=== PATIENT | male | born 1995 | race Caucasian/White ===

== ENCOUNTER 2020-06-07 15:38 | Emergency (ER) | payer OTHER ==
--- OUTSIDE RECORDS SUMMARY | 2020-06-07 16:05 | XMS REPORT | Continuity of Care Document ---
:1995 Author Organization [facility] t Address [address] [place] [address] Care Team Providers Name Role Phone Unavailable Unavailable Unavailable Payers Payer Name Policy Type Policy Number Effective Date Expiration Date S ource Problems This patient has no known problems. Allergies, Adverse Reactions, Alerts Allergy Allergy Status Severity Reaction(s) Onset Inactive Treating Comm ents Source Name Type Date Date Clinician UNKNOWN DA Active U [facility] 01-[address] [facility] 00:00: d 00 [facility] Medications This patient has no known medications. Procedures This patient has no known procedures. Results Test Description Test Time Test Comments Results Result [facility] e Comments - XR CHEST 1 V 2020-01-21 Name: ARIA ONEAL 13:14:00 [facility] : 1995 Age/S: 24 / M [address] [place] Unit #: [id number] Loc: [place] [address] Phys: Kmii Flores B DO Acct: [id number] Dis Date: Status: REG ER PHONE #: [phone] Exam Date: 01/21/2020 1312 FAX #: Reason: chest pain EXAMS: CPT: [id number] XR CHEST 1 V 66883 Fluoro Time: DAP (Gy m2): Air Kerma (mGy): INDICATION: chest pain LOCATION: T18 COMPARISON STUDY: None available FINDINGS: Single view of the chest. The lungs are clear. There is no pneumothorax or pleural fluid. The heart size and pulmonary vasculature are within normal limits. No acute osseous findings. IMPRESSION: No evidence of acute cardiopulmonary process. at 1314 Reported and signed by: Murali Azar M.D. CC: Kimi Flores DO PAGE 1 Signed Report Name: ARIA ONEAL : 1995 Age/S: 24 / M [address] [place] Unit #: [id number] Loc: [place] [address] Phys: Kimi Flores DO Acct: [id number] Dis Date: Status: REG ER PHONE #: [phone] Exam Date: 01/21/2020 1312 FAX #: Reason: chest pain EXAMS: CPT: [id number] XR CHEST 1 V 94928 Fluoro Time: DAP (Gy m2): Air Kerma (mGy): <Continued> Technologist: Isma Jorge RT(R)(CT) Trnscb Date/Time: 01/21/2020 (1314) [email or web address] Orig Print D/T: S: 01/21/2020 (9487) PAGE 2 Signed Report BASIC METABOLIC PANEL 2020-01-21 13:04:00 Test Item Value Reference Range Interpretation Comme nts SODIUM (test code = NA) 141 mmol/L 134-147 N POTASSIUM (test code = K) 3.5 mmol/L 3.4-5.0 N CHLORIDE (test code = CL) 106 mmol/L 100-108 N CARBON DIOXIDE (test code = CO2) 25 mmol/L 21-32 N ANION GAP (test code = GAP) 10.0 GAP calc 4.0-15.0 N GLUCOSE (test code = GLU) 90 MG/DL 70-110 N BLOOD UREA NITROGEN (test code = BUN) 24 MG/DL 7-18 H GLOMERULAR FILTRATION RATE (test code = GFR) >=60 max estimate estG FR >60 CREATININE (test code = CREAT) 0.8 MG/DL 0.8-1.3 N CALCIUM (test code = CA) 8.5 MG/DL 8.5-10.1 N CREATINE KINASE (CK)2020-01-21 13:04:00 Test Item Value Reference Range Interpretation Comments CREATINE KINASE (CK) (test code = 580 Unit/L 26-192 H CK) CBC W/O [id number] 12:51:00 Test Item Value Reference Range Interpretation Comments WHITE BLOOD CELL (test code = WBC) 11.6 K/mm3 3.5-11.0 H RED BLOOD CELL (test code = RBC) 4.49 M/mm3 4.70-6.10 L HEMOGLOBIN (test code = HGB) 14.2 G/DL 12.3-15.9 N HEMATOCRIT (test code = HCT) 42.1 % 35.8-46.7 N MEAN CELL VOLUME (test code = MCV) 93.8 Fl 86.3-98.9 N MEAN CELL HGB (test code = MCH) 31.6 pg 28.9-34.4 N MEAN CELL HGB CONCETRATION (test 33.7 G/DL 32.1-34.5 N code = MCHC) RED CELL DISTRIBUTION WIDTH (test 12.8 SD 11.5-14.5 N code = RDW) PLATELET COUNT (test code = PLT) 219 K/mm3 150-450 N MEAN PLATELET VOLUME (test code = 9.30 fL 7.0-9.6 N MPV)
--- NOTE | 2020-06-07 17:25 | ER ---
Nurse's Notes [facility] Name: Lars Cruz III Age: 24 yrs Sex: Male : 1995 Arrival Date: 06/07/2020 Time: 16:06 Bed Waiting Private MD: Diagnosis: Presentation: 06/07 16:06 Chief complaint: Patient states: RUQ abd pain for 1 day. States it feels like his ll1 kidney stones in the past. No N/V/D. No fever. Coronavirus screen: Client denies travel out of the [place] in the last 14 days. At this time, the client does not indicate any symptoms associated with coronavirus-19. Ebola Screen: Patient denies travel to an Ebola-affected area in the 21 days before illness onset. Initial Sepsis Screen: Does the patient meet any 2 criteria? HR > 90 bpm. No. Patient's initial sepsis screen is negative. Does the patient have a suspected source of infection? Yes: Acute abdominal pain. Risk Assessment: Do you want to hurt yourself or someone else? Patient reports no desire to harm self or others. Onset of symptoms was June 07, 2020. 16:06 Method Of Arrival: Ambulatory 1 16:06 Acuity: JONATHAN 3 ll1 Historical: - Allergies: 16:10 "1 pink pill"-cant remember the name; ll1 - PMHx: 16:10 Kidney stones; tachycardia; ll1 - PSHx: 16:10 facial surgery; ll1 - Immunization history:: Flu vaccine is not up to date. - Social history:: Smoking status: Patient reports the use of cigarette tobacco products, denies chronic smoking, but will smoke occasionally. Vital Signs: 16:06 BP 120 / 89; Pulse 107; Resp 16; Temp 97.5; Pulse Ox 99% ; Weight 58.97 kg; Height 5 ll1 ft. 2 in. (157.48 cm); Pain 7/10; 16:06 Body Mass Index 23.78 (58.97 kg, 157.48 cm) 1 ED Course: 16:06 Patient arrived in ED. ll1 16:08 Triage completed. ll1 16:10 Arm band placed on. ll1 Administered Medications: No medications were administered Outcome: 17:25 Patient left the ED. 1 Signatures: Gilbert, Lynsay, RN RN ll1
[2020-06-07 17:37] VITALS: BP 120/89; TEMP 97.5; O2SAT 99
== END 2020-06-07 17:25 | disposition left against medical advice (07) ==
LOC: ER 15:38
DX: R10.9 Unspecified abdominal pain (principal); Z53.21 Procedure and treatment not carried out due to patient leaving prior to being seen by health care provider
CPT/HCPCS: 99281

== ENCOUNTER 2020-06-07 18:13 | Observation (INO) | payer OTHER ==
--- OUTSIDE RECORDS SUMMARY | 2020-06-07 18:16 | XMS REPORT | Continuity of Care Document ---
:1995 Author Organization [facility] t Address [address] [place] [address] Care Team Providers Name Role Phone Unavailable Unavailable Unavailable Payers Payer Name Policy Type Policy Number Effective Date Expiration Date S ource Problems This patient has no known problems. Allergies, Adverse Reactions, Alerts Allergy Allergy Status Severity Reaction(s) Onset Inactive Treating Comm ents Source Name Type Date Date Clinician UNKNOWN DA Active [facility] Medications This patient has no known medications. Procedures This patient has no known procedures. Results Test Description Test Time Test Comments Results Result [facility] e Comments - XR CHEST 1 V 2020-01-21 Name: ARIA ONEAL 13:14:00 [facility] : 1995 Age/S: 24 / M [address] [place] Unit #: [id number] Loc: [place] [address] Phys: Madlilly,Timii B DO Acct: [id number] Dis Date: Status: REG ER PHONE #: [phone] Exam Date: 01/21/2020 1312 FAX #: Reason: chest pain EXAMS: CPT: [id number] XR CHEST 1 V 39227 Fluoro Time: DAP (Gy m2): Air Kerma [...] ONEAL : 1995 Age/S: 24 / M [address] [place] Unit #: [id number] Loc: [place] [address] Phys: Kimi Flores DO Acct: [id number] Dis Date: Status: REG ER PHONE #: [phone] Exam Date: 01/21/2020 1312 FAX #: Reason: chest pain EXAMS: CPT: [id number] XR CHEST 1 V 32036 Fluoro Time: DAP (Gy m2): Air Kerma (mGy): <Continued> Technologist: Isma Jorge RT(R)(CT) Trnscb Date/Time: 01/21/2020 (131) [email or web address] Orig Print D/T: S: 01/21/2020 (7627) PAGE 2 Signed Report BASIC METABOLIC PANEL [...] 580 Unit/L 26-192 H CK) CBC W/O [id number] 12:51:00 Test Item Value Reference Range Interpretation [...]
[2020-06-07] MEDS ORDERED: NA CHLORIDE 0.9% 1,000 ML ONE (21:18)
[2020-06-07] MEDS ORDERED: KETOROLAC 30 MG/ML INJ ONE (21:18)
[2020-06-07] MEDS ORDERED: ONDANSETRON 4 MG/2 ML VIAL ONE (21:18)
[2020-06-07 21:19] LABS: Absolute Lymphocytes (CBC) 3.5 K/uL (0.7-4.9); Basophils % 0.7 % (0-1.3); Hematocrit 43.1 % (39.6-49.0); Lymphocytes % 32.2 % (15.3-44.8); MPV 8.2 fL (7.6-11.3); RBC Red Blood Cell Count 4.78 M/uL (4.33-5.43)
[2020-06-07 21:37] LABS: ALT/SGPT 49 U/L (12-78); AST/SGOT 27 U/L (15-37); Albumin 3.9 g/dL (3.4-5.0); Alkaline Phosphatase 89 U/L (45-117); BUN Blood Urea Nitrogen 18 mg/dL (7-18); Bicarbonate 29 mmol/L (21-32); Bilirubin Direct < 0.1 mg/dL (0-0.2); Bilirubin Total 0.2 mg/dL (0.2-1.0); Glucose Level 90 mg/dL (74-106); Lipase 164 U/L (73-393); Potassium 4.3 mmol/L (3.5-5.1); Protein, Total 7.2 g/dL (6.4-8.2); Sodium Level 142 mmol/L (136-145)
[2020-06-07 22:21] LABS: Urine Blood 1+ (NEG); Urine Glucose TRACE (NEG); Urine Protein NEGATIVE (NEG); Urine Specific Gravity >1.030 (1.005-1.030); Urine pH 5.5 (5.0-7.0)
[2020-06-07 22:27] LABS: Calcium Oxalate Crystals- Ur MODERATE (NONE SEEN); Urine Bacteria <20 /HPF (NONE SEEN); Urine RBC <5 /HPF (NONE SEEN)
[2020-06-07 22:28] LABS: Urine Mucus 1+ /HPF (NONE SEEN)
--- NOTE | 2020-06-07 23:40 | EDPHYS ---
Physician Documentation [facility] Name: Lars Cruz III Age: 24 yrs Sex: Male : 1995 Arrival Date: 06/07/2020 Time: 18:19 Bed 16 Private MD: ED Physician Mehrdad Lambert HPI: 06/07 20:50 This 24 yrs old Male presents to ER via Ambulatory with complaints of cp Abdominal Pain. 20:50 The patient presents with abdominal pain right flank. cp 20:50 Onset: The symptoms/episode began/occurred intermittent for months, pain returned cp yesterday. 20:50 The symptoms do not radiate. Associated signs and symptoms: Pertinent positives: cp nausea, right mid back pain. Historical: - Allergies: 18:32 "1 pink pill"-cant remember the name; ll1 - PMHx: 18:32 Kidney stones; Tachycardia; ll1 - PSHx: 18:32 facial surgery; ll1 - Immunization history:: Flu vaccine is not up to date. - Social history:: Smoking status: Patient reports the use of cigarette tobacco products, denies chronic smoking, but will smoke occasionally, smokes one-half pack cigarettes per day. ROS: 20:55 Constitutional: Negative for body aches, chills, fever, poor PO intake. cp 20:55 Eyes: Negative for injury, pain, redness, and discharge. cp 20:55 ENT: Negative for ear pain, sore throat, difficulty swallowing, difficulty handling secretions. 20:55 Cardiovascular: Negative for chest pain. 20:55 Respiratory: Negative for cough, shortness of breath, wheezing. 20:55 Abdomen/GI: Positive for abdominal pain, of the anterior aspect of right lateral abdomen, Negative for vomiting, diarrhea, constipation, anorexia. 20:55 Back: Positive for flank pain, on the right, Negative for injury or acute deformity, decreased range of motion. 20:55 : Negative for urinary symptoms, difficulty urinating, testicular pain 20:55 Neuro: Negative for weakness. 20:55 All other systems are negative. Exam: 21:00 Constitutional: The patient appears in no acute distress, alert, awake, non-toxic, well cp developed, well nourished. 21:00 Head/Face: Normocephalic, atraumatic. cp 21:00 Eyes: Periorbital structures: appear normal, Conjunctiva: normal, no exudate, no injection, Sclera: no appreciated abnormality, Lids and lashes: appear normal, bilaterally. 21:00 ENT: External ear(s): are unremarkable, Nose: is normal, Posterior pharynx: Airway: no evidence of obstruction, patent. 21:00 Chest/axilla: Inspection: normal, Palpation: is normal, no crepitus, no tenderness. 21:00 Cardiovascular: Rate: tachycardic, Rhythm: regular. 21:00 Respiratory: the patient does not display signs of respiratory distress, Respirations: normal, no use of accessory muscles, no retractions, labored breathing, is not present, Breath sounds: are clear throughout, no decreased breath sounds, no stridor, no wheezing. 21:00 Abdomen/GI: Inspection: abdomen appears normal, Bowel sounds: active, all quadrants, Palpation: soft, in all quadrants, mild abdominal tenderness, in the anterior aspect of right lateral abdomen, rebound tenderness, is not appreciated, voluntary guarding, is not appreciated, involuntary guarding, is not appreciated. 21:00 Back: CVA tenderness, is absent. 21:00 Neuro: Orientation: to person, place \\T\\ time. Mentation: is normal, Motor: moves all fours, strength is normal. Vital Signs: 18:31 BP 113 / 74; Pulse 107; Resp 17; Temp 98.7; Pulse Ox 97% ; Weight 61.23 kg; Height 5 ll1 ft. 2 in. (157.48 cm); Pain 8/10; 21:00 BP 124 / 85; Pulse 91; Resp 16; Pulse Ox 100% on R/A; vg1 22:00 BP 100 / 70; Pulse 65; Resp 14; Pulse Ox 98% on R/A; vg1 06/08 04:00 BP 102 / 65; Pulse 65; Resp 15; Pulse Ox 99% ; rr5 05:00 BP 112 / 62; Pulse 69; Resp 17; Pulse Ox 98% ; rr5 06:00 BP 110 / 76; Pulse 60; Resp 16; Pulse Ox 98% ; rr5 06/07 18:31 Body Mass Index 24.69 (61.23 kg, 157.48 cm) ll1 MDM: 06/07 20:39 Patient medically screened. [facility] 06/07 20:29 Order name: Urine Microscopic Only; Complete Time: 22:33 cp 06/07 20:44 Order name: Basic Metabolic Panel; Complete Time: 22:33 cp 06/07 20:44 Order name: CBC with Diff; Complete Time: 22:33 cp 06/07 22:52 Interpretation: Normal except: MCV 90.1. cp 06/07 20:44 Order name: Hepatic Function; Complete Time: 22:33 cp 06/07 20:44 Order name: Lipase; Complete Time: 22:33 cp 06/07 21:33 Order name: Urine Dipstick--Ancillary (enter results); Complete Time: 22:33 mw2 06/08 01:49 Order name: COVID-19 rr5 06/08 03:17 Order name: CORONAVIRUS EDMS 06/08 05:03 Order name: SARS-COV-2 RT PCR EDMS 06/08 07:13 Order name: CBC with Automated Diff EDMS 06/08 07:27 Order name: Basic Metabolic Panel EDMS 06/08 07:27 Order name: Liver (Hepatic) Function EDMS 06/08 07:28 Order name: Lipase EDMS 06/08 09:32 Order name: Manual Differential EDMS 06/07 20:29 Order name: Urine Dipstick-Ancillary (obtain specimen); Complete Time: 21:33 cp 06/07 20:44 Order name: IV Saline Lock; Complete Time: 21:20 cp 06/07 20:44 Order name: Labs collected and sent; Complete Time: 21:20 cp 06/07 20:44 Order name: CT Stone Protocol 06/07 22:32 Order name: US Abdomen Limited jazz Administered Medications: Discontinued: NS 0.9% 1000 ml IV at 1 bolus Per protocol; 1000 mL bolus 21:05 Drug: NS 0.9% 1000 ml Route: IV; Rate: 1 bolus; Site: right antecubital; vg1 21:19 Not Given (Patient Refused): TORadol - Ketorolac 15 mg IVP once vg1 21:19 Not Given (Patient Refused): Zofran (Ondansetron) 4 mg IVP once; over 2 minutes vg1 06/08 02:08 Drug: Pepcid 20 mg Route: IVP; Site: left antecubital; rr5 03:00 Follow up: Response: No adverse reaction rr5 02:09 Dru.375 grams of (Zosyn 3.375 grams, NS 0.9% 100 ml) Route: IVPB; Infused Over: 60 rr5 mins; Site: left antecubital; 03:00 Follow up: Response: No adverse reaction; IV Status: Completed infusion; IV Intake: rr5 100ml 07:15 Not Given (Patient Refused): Nicoderm CQ 21 mg/24 hr 21 mg Transdermal once rr5 Disposition: 14:45 Co-signature as Attending Physician, Mehrdad Lambert MD I agree with the assessment and [facility] plan of care. Disposition: 06/07/20 23:39 Hospitalization ordered by Nazario Sanchez for Observation. Preliminary diagnosis are Abdominal tenderness, Cholelithiasis, Cholecystitis. - Bed requested for [facility] ER HOLD. - Status is Observation. tw2 - Condition is Stable. - Problem is new. - Symptoms have improved. Signatures: Dispatcher [employer] Sonya Sawant, RN RN Mehrdad Adame MD MD cha Page, Corey, Elsa Min cp RN RN tw2 Minh Taveras RN RN rr5 Jamilah Sotelo RN RN vg1 Ciara Hunt RN RN ll1 Corrections: (The following items were deleted from the chart) 06/07 23:50 23:39 Hospitalization Ordered by Nazario Sanchez MD for Observation. Preliminary diagnosis is Abdominal tenderness; Cholelithiasis; Cholecystitis. Bed requested for Telemetry/MedSurg (observation). Status is Observation. Condition is Stable. Problem is new. Symptoms have improved. [facility] 06/08 12:16 06/07 23:50 06/07/2020 23:39 Hospitalization Ordered by Nazario Sanchez MD for tw2 Observation. Preliminary diagnosis is Abdominal tenderness; Cholelithiasis; Cholecystitis. Bed requested for [facility] ER HOLD. Status is Observation. Condition is Stable. Problem is new. Symptoms have improved. dw
--- NOTE | 2020-06-07 23:40 | ER ---
Nurse's Notes [facility] Name: Lars Cruz III Age: 24 yrs Sex: Male : 1995 Arrival Date: 06/07/2020 Time: 18:19 Bed 16 Private MD: Diagnosis: Abdominal tenderness;Cholelithiasis;Cholecystitis Presentation: 06/07 18:31 Chief complaint: Patient states: RUQ abd pain. No fever. No N/V/D. Believes its kidney ll1 stones. Coronavirus screen: Client denies travel out of the [place] in the last 14 days. At this time, the client does not indicate any symptoms associated with coronavirus-19. Ebola Screen: Patient denies travel to an Ebola-affected area in the 21 days before illness onset. Initial Sepsis Screen: Does the patient meet any 2 criteria? HR > 90 bpm. No. Patient's initial sepsis screen is negative. Does the patient have a suspected source of infection? Yes: Acute abdominal pain. Risk Assessment: Do you want to hurt yourself or someone else? Patient reports no desire to harm self or others. Onset of symptoms. 18:31 Method Of Arrival: Ambulatory ll1 18:31 Acuity: JONATHAN 3 ll1 Historical: - Allergies: 18:32 "1 pink pill"-cant remember the name; ll1 - PMHx: 18:32 Kidney stones; Tachycardia; ll1 - PSHx: 18:32 facial surgery; ll1 - Immunization history:: Flu vaccine is not up to date. - Social history:: Smoking status: Patient reports the use of cigarette tobacco products, denies chronic smoking, but will smoke occasionally, smokes one-half pack cigarettes per day. Screenin:22 Abuse screen: Denies threats or abuse. Nutritional screening: No deficits noted. vg1 Tuberculosis screening: No symptoms or risk factors identified. Fall Risk None identified. Assessment: 21:00 General: Appears in no apparent distress. comfortable, Behavior is calm, cooperative. vg1 Pain: Complains of pain in epigastric area and right upper quadrant Pain currently is 5 out of 10 on a pain scale. Neuro: Level of Consciousness is awake, alert, obeys commands, Oriented to person, place, time, situation. Cardiovascular: Patient's skin is warm and dry. Respiratory: Airway is patent Respiratory effort is even, unlabored, Respiratory pattern is regular, symmetrical. GI: Bowel sounds present X 4 quads. Abd is soft X 4 quads Abd is non tender X 4 quads. : No signs and/or symptoms were reported regarding the genitourinary system. EENT: No signs and/or symptoms were reported regarding the EENT system. Derm: Skin is intact, is healthy with good turgor. Musculoskeletal: Circulation, motion, and sensation intact. 22:39 Reassessment: Patient appears in no apparent distress at this time. No changes from vg1 previously documented assessment. Patient and/or family updated on plan of care and expected duration. Pain level reassessed. Patient is alert, oriented x 3, equal unlabored respirations, skin warm/dry/pink. 22:40 Reassessment: US at bedside. vg1 23:47 Reassessment: Pratima Cruz (Aunt) [phone]. vg1 06/08 04:00 Reassessment: Patient appears in no apparent distress at this time. Patient is alert, rr5 oriented x 3, equal unlabored respirations, skin warm/dry/pink. refused for the nicoderm patch. 05:00 Reassessment: Patient appears in no apparent distress at this time. Patient is alert, rr5 oriented x 3, equal unlabored respirations, skin warm/dry/pink. on right side lying position, no complaints made. 06:00 Reassessment: Patient appears in no apparent distress at this time. resting eyes closed rr5 breathing spontaneously at room air. Vital Signs: 06/07 18:31 BP 113 / 74; Pulse 107; Resp 17; Temp 98.7; Pulse Ox 97% ; Weight 61.23 kg; Height 5 ll1 ft. 2 in. (157.48 cm); Pain 8/10; 21:00 BP 124 / 85; Pulse 91; Resp 16; Pulse Ox 100% on R/A; vg1 22:00 BP 100 / 70; Pulse 65; Resp 14; Pulse Ox 98% on R/A; vg1 06/08 04:00 BP 102 / 65; Pulse 65; Resp 15; Pulse Ox 99% ; rr5 05:00 BP 112 / 62; Pulse 69; Resp 17; Pulse Ox 98% ; rr5 06:00 BP 110 / 76; Pulse 60; Resp 16; Pulse Ox 98% ; rr5 01/20 18:31 Body Mass Index 24.69 (61.23 kg, 157.48 cm) ll1 ED Course: 06/07 18:19 Patient arrived in ED. mr 18:32 Triage completed. ll1 18:32 Arm band placed on. ll1 20:28 Mehrdad Coronado PA is PHCP. cp 20:29 Mehrdad Lambert MD is Attending Physician. cp 20:35 Jamilah Sotelo RN is Primary Nurse. vg1 21:10 Inserted saline lock: 20 gauge in left antecubital area, using aseptic technique. Blood rr5 collected. 21:22 Patient has correct armband on for positive identification. Bed in low position. Call vg1 light in reach. 21:[address] via wheelchair. vg1 21:[address]. vg1 21:55 CT Stone Protocol In Process Unspecified. EDMS 22:58 US Abdomen Limited In Process Unspecified. EDMS 23:38 Nazario Sanchez MD is Hospitalizing Provider. [facility] 06/08 02:09 COVID swab sent to lab. rr5 03:43 Primary Nurse role handed off by Jamilah Sotelo RN mw2 04:46 Minh Taveras, IMER is Primary Nurse. rr5 06:00 No provider procedures requiring assistance completed. Patient admitted, IV remains in rr5 place. intact, No redness/swelling at site. 07:11 Primary Nurse role handed off by Minh Taveras RN tw2 07:11 Elsa Suresh RN is Primary Nurse. tw2 12:15 Report given to IMER [place]. tw2 Administered Medications: Discontinued: NS 0.9% 1000 ml IV at 1 bolus Per protocol; 1000 mL bolus 06/07 21:05 Drug: NS 0.9% 1000 ml Route: IV; Rate: 1 bolus; Site: right antecubital; vg1 21:19 Not Given (Patient Refused): TORadol - Ketorolac 15 mg IVP once vg1 21:19 Not Given (Patient Refused): Zofran (Ondansetron) 4 mg IVP once; over 2 minutes vg1 06/08 02:08 Drug: Pepcid 20 mg Route: IVP; Site: left antecubital; rr5 03:00 Follow up: Response: No adverse reaction rr5 02:09 Dru.375 grams of (Zosyn 3.375 grams, NS 0.9% 100 ml) Route: IVPB; Infused Over: 60 rr5 mins; Site: left antecubital; 03:00 Follow up: Response: No adverse reaction; IV Status: Completed infusion; IV Intake: rr5 100ml 07:15 Not Given (Patient Refused): Nicoderm CQ 21 mg/24 hr 21 mg Transdermal once rr5 Intake: 03:00 IV: 100ml; Total: 100ml. rr5 Outcome: 06/07 23:39 Decision to Hospitalize by Provider. jazz 06/08 06:00 Admitted to [facility] Hold. [facility]. rr5 Condition: stable Instructed on the need for admit. 12:16 Patient left the ED. tw2 Signatures: Dispatcher [employer] EDMehrdad Steele MD MD cha Rivera, Mehrdad Pagan PA PA cp Wise, Tara RN RN tw2 Johanna Mckeon 2 Minh Taveras RN RN rr5 Jamilah Sotelo RN RN vg1 Ciara Hunt, RN RN ll1
[2020-06-08] MEDS ORDERED: PIPER/TAZO/NS 3.375gm 3.375 GM/100 ML BAG ONE ×2 (02:02→12:30)
[2020-06-08] MEDS ORDERED: NICOTINE 21 MG/PAT TD ONE (02:02)
[2020-06-08] MEDS ORDERED: FAMOTIDINE 20 MG/2 ML VIAL IV ONE (02:02)
[2020-06-08] MEDS ORDERED: D5 0.45 NS 1,000 ML IV ONE (02:07)
[2020-06-08] MEDS ORDERED: PIPER/TAZO/NS 3.375gm 3.375 GM/100 ML BAG IVPB SCH ×2 (06:32→17:00)
[2020-06-08] MEDS ORDERED: MORPHINE 4 MG/ML SYR IV PRN (06:32)
[2020-06-08] MEDS ORDERED: ACETAMINOPHEN 500 MG TAB PO PRN (06:32)
[2020-06-08] MEDS ORDERED: D5 0.45 NS 1,000 ML IV SCH (06:32)
[2020-06-08] MEDS ORDERED: ONDANSETRON 4 MG/2 ML VIAL IV PRN (06:32)
[2020-06-08 06:34] VITALS: BMI 24.5
[2020-06-08 07:10] LABS: Absolute Lymphocytes (CBC) 3.6 K/uL (0.7-4.9); Basophils % 0.5 % (0-1.3); Hematocrit 41.3 % (39.6-49.0); Lymphocytes % 46.3 % (15.3-44.8); MPV 8.1 fL (7.6-11.3); RBC Red Blood Cell Count 4.55 M/uL (4.33-5.43)
[2020-06-08 07:27] LABS: ALT/SGPT 42 U/L (12-78); AST/SGOT 24 U/L (15-37); Albumin 3.3 g/dL (3.4-5.0); Alkaline Phosphatase 60 U/L (45-117); BUN Blood Urea Nitrogen 13 mg/dL (7-18); Bicarbonate 28 mmol/L (21-32); Bilirubin Direct < 0.1 mg/dL (0-0.2); Bilirubin Total 0.4 mg/dL (0.2-1.0); Glucose Level 84 mg/dL (74-106); Lipase 126 U/L (73-393); Protein, Total 6.3 g/dL (6.4-8.2); Sodium Level 143 mmol/L (136-145)
[2020-06-08] MEDS ORDERED: FAMOTIDINE 20 MG/2 ML VIAL IV SCH (09:00)
[2020-06-08 09:32] LABS: Blood Morphology Comment NOT SEEN (NOT SEEN); Platelet Estimate ADEQ
[2020-06-08] MEDS ORDERED: propofoL 200 MG/20 ML VIAL IV ONE (12:03)
[2020-06-08] MEDS ORDERED: LIDOCAINE 2% MPF 5 ML VIAL ONE (12:04)
[2020-06-08] MEDS ORDERED: dexAMETHasone 10 MG/ML VIAL ONE (12:04)
[2020-06-08] MEDS ORDERED: MIDAZOLAM HCL 2 MG/2 ML INJ ONE (12:04)
[2020-06-08] MEDS ORDERED: ROCURONIUM 50 MG/5 ML VIAL IV ONE (12:04)
[2020-06-08] MEDS ORDERED: FENTANYL CITR 100 MCG/2 ML ONE (12:04)
[2020-06-08] MEDS ORDERED: Ringers Lactate 1,000 ML IV ONE (12:26)
--- NOTE | 2020-06-08 13:23 | P.BOP ---
Preoperative diagnosis: acute cholecystitis, symptomatic cholelithiasis, RUQ abd pain Postoperative diagnosis: same Primary procedure: Laparoscopic cholecystectomy Estimated blood loss: <10cc Specimen: gb Findings: as above Anesthesia: General Complications: None Transferred to: Recovery Room Condition: Good
[2020-06-08] MEDS ORDERED: KETOROLAC 30 MG/ML INJ ONE (13:27)
[2020-06-08] MEDS ORDERED: GLYCOPYRROLATE 0.2 MG/ML SYR ONE (13:30)
[2020-06-08] MEDS ORDERED: NEOSTIGMINE 1 MG/ML -5 ML ONE (13:33)
[2020-06-08 13:45] VITALS: O2SAT 100
--- NOTE | 2020-06-08 13:55 | HP ---
Date of Admission: 06/07/2020 Reason For Service: Acute cholecystitis, symptomatic cholelithiasis, intractable right upper quadran t abdominal pain. History Of Present Illness: This is a case of a 24-year-old patient, comes to us with about a week h istory of epigastric right upper quadrant pain radiating to the back associated with nausea, vomiting . Today it got worse overnight and he decided to come to the ER early this morning. He denies any d ysuria, hematuria, hematochezia, melena. He denies any recent traveling out of the country. Denies any family member sick at home. He remembered the last few weeks every time he has greasy food, he d oes not have a good afternoon. Past Surgical History: Include facial surgery due to a dog bite. Social History: He does not smoke. He does not drink alcohol. Past Medical History: Also include kidney stones. Allergies: HE DOES NOT REMEMBER. Family History: Noncontributory. Review of Systems: Denies any shortness of breath, any chest pain, any fever. See H and P, otherwise unremarkable. Physical Examination: General: The patient is awake, alert. HEENT: Pupils are equal and reactive, anicteric. Neck: Supple. Chest: Clear Abdomen: Epigastric right upper quadrant pain with Gomez sign positive. The rest of the abdomen is soft and depressible. Extremities: Good capillary refill. NEUROLOGIC: Cranial nerves 2 through 12 grossly within normal limits. Laboratory Data: WBC count of 10.8, hemoglobin of 14.6, and platelets 267 with a chloride of 108. T otal bili of 0.2. UA, moderate amount of calcium. CAT scan of abdomen and pelvis and ultrasound per Radiology shows gallstone with thickening gallbladder wall consistent with acute cholecystitis. Assessment: A 24-year-old patient with acute cholecystitis, symptomatic cholelithiasis. The patient wants to have surgery done at this admission. The benefits, alternatives, and risks of laparoscopic , possible open cholecystectomy were fully explained which include, but not limited to infection, ble eding, damage to adjacent structures, anesthesia complication, choledocholithiasis, bile leak, pancre atitis, SC, and even . He also understands this may not relieve the symptoms. He might need mo re than one surgical intervention. He prefers to go home after the diet. We explained to him if he gets to go home, to keep a low-fat diet. No heavy lifting, no more than 20 pounds. Take his medicat ions as prescribed. Avoid raw foot, greasy foot, spicy food and follow in my office in 1 week. VALERIO Voice ID: [id number]
[2020-06-08] MEDS ORDERED: CODEINE 30MG/APAP 300MG TAB ONE (15:08)
--- NOTE | 2020-06-08 15:23 | RAD REPORT ---
EXAM DESCRIPTION: CT - Stone Protocol - 06/08/2020 7:13 am CLINICAL HISTORY: Right flank pain COMPARISON: None. 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 FINDINGS: Lower lungs are clear. Abdomen: The liver is normal in appearance. There is no biliary dilatation. Gallbladder is poorly dis tended, containing a small gallstone. The pancreas and spleen are normal in appearance. The adrenal g lands and kidneys are unremarkable. Abdominal aorta is normal in course and caliber without aneurysm. There is no free air. There is no r etroperitoneal adenopathy. There is minimal wall thickening the gallbladder measuring up to 6 mm. Pelvis: There is no bowel obstruction. Urinary bladder is unremarkable. There is no free fluid. Appen beth is normal. Skeleton: There are no acute osseous findings. No suspicious bony lesions. IMPRESSION: No renal or ureteral calculi. Mild gallbladder wall thickening along with a gallstone. Difficult to exclude mild cholecystitis. Electronically signed by: Hardik Banks MD 06/07/2020 10:20 PM FRONT END APPLICATION DEVELOPER Due to temporary technical issues with the PACS/Fluency reporting system, reports are being signed by the in house radiologists without review as a courtesy to insure prompt reporting. The interpreting radiologist is fully responsible for the content of the report.
[2020-06-08 15:39] VITALS: BP 127/85; TEMP 97
--- NOTE | 2020-06-09 11:36 | RAD REPORT ---
EXAM DESCRIPTION: US - Abdomen Exam Limited - 06/07/2020 10:59 pm CLINICAL HISTORY: 24 years Male ABD PAIN COMPARISON: CT abdomen and pelvis study from earlier in the day. TECHNIQUE: Transabdominal grayscale imaging performed to evaluate the right upper quadrant. FINDINGS: There are small gallstones in the gallbladder. The gallbladder wall is thickened to 0.65 c m in diameter. No pericholecystic fluid. The common bile duct measures 0.3 cm. IMPRESSION: There are small gallstones in the gallbladder with gallbladder wall thickening. Changes from cholecystitis are not excluded. Nuclear medicine HIDA imaging could be obtained to further evalu ate the gallbladder if indicated. Electronically signed by: Bassam Robbins MD 06/07/2020 11:17 PM CONSTRUCTION SECRETARY Due to temporary technical issues with the PACS/Fluency reporting system, reports are being signed by the in house radiologist without review as a courtesy to ensure prompt reporting. The interpreting r adiologist is fully responsible for the content of the report.
--- NOTE | 2020-06-19 10:58 | DS ---
Date of Discharge: 06/08/2020 Diagnoses: Acute cholecystitis, symptomatic cholelithiasis, right upper quadrant abdominal pain. Procedure: Cholecystectomy. Disposition: Home. Activity: As tolerated. No heavy lifting. Plan: Follow up in my office in 1 week. Call for appointment at [phone]. Keep area dry for 48 samuel rs, then may shower. Keep Steri-Strip intact. Medications: See orders. JERONIMO/LIZ Voice ID: [id number] Report ID: [id number]
--- NOTE | 2020-06-19 10:58 | OP ---
Date of Procedure: 06/08/2020 Surgeon: Nazario Sanchez MD Preoperative Diagnoses: Acute cholecystitis, symptomatic cholelithiasis, right upper quadrant abdomi nal pain. Postoperative Diagnoses: Acute cholecystitis, symptomatic cholelithiasis, right upper quadrant abdom inal pain. Procedure: Laparoscopic cholecystectomy. Estimated Blood Loss: Less than 10 mL. Specimen: Gallbladder. Anesthesia: General plus local. Indications: This is the case of a male, who comes to us with above diagnosis. Fully explained the benefits, alternatives, and risks of laparoscopic possible open cholecystectomy, which include, but n ot limited to infection, bleeding, damage to adjacent structures, anesthesia complication, choledocho lithiasis, bile leak, pancreatitis, WI, and even . He also understands this may not relieve his symptoms. He might need more than one surgical intervention. He understood, signed a consent. Procedure In Detail: The patient was brought to the operating room, placed in supine position. Anes thesia was done without complication. Abdominal area was prepped and draped in a sterile fashion. M arcaine 0.5% was injected for local anesthetic followed by sharp incision of the skin in the infraumb ilical region. Incision was carried down to fascia, which was opened under direct vision. Peritoneu m was encountered, opened under direct vision. Vicryl #1 placed inside the fascia. Vita trocar wa s carefully introduced. Pneumoperitoneum was obtained. I placed 3 more trocars, 5 mm each of one of them in the epigastric right upper quadrant area under direct visualization. This allowed me to put a grasper in the fundus of the gallbladder and another grasper in the infundibulum retracting the ga llbladder in the inferolateral fashion exposing the triangle of Calot and obtaining critical view. C ystic duct and cystic artery were clearly isolated free circumferentially, and a connection between t hose and the gallbladder was clearly identified. I proceeded to ligate those by using at least 3 cli ps proximal, 1 clip distal, and ligation in middle. Same was done with the cystic artery. No bile l eak. No bleeding. The gallbladder was removed from liver using Bovie cauterizer and removed from ab dominal cavity using EndoCatch through the umbilical incision. The area was inspected once again. N o bile leak. No bleeding. At that moment, I proceeded to remove the trocars under direct vision. D eflated pneumoperitoneum. Closed the fascia with #1 Vicryl. Irrigated subcutaneous tissue, closed w ith 3-0 chromic and then the skin was approximated. Sponge count and instrument counts were correct. The patient tolerated the procedure well. The patient was sent to recovery in stable condition. JERONIMO/LIZ Voice ID: [id number] Report ID: [id number]
== END 2020-06-08 15:15 | disposition home or self-care (01) ==
LOC: ER 18:13 → ERHOLD 23:42
PROVIDERS: ADMIT Surgery; ATTEND Surgery
PROC: 0FT44ZZ Resection of Gallbladder, Percutaneous Endoscopic Approach (ICD-10-PCS; principal; 2020-06-08 11:30)
DX: K80.12 Calculus of gallbladder with acute and chronic cholecystitis without obstruction (principal); Z20.822 Contact with and (suspected) exposure to COVID-19; F17.210 Nicotine dependence, cigarettes, uncomplicated
CPT/HCPCS: 96365; 85025 ×2; 80048 ×2; 36415 ×2; 80076 ×2; 88304; 83690 ×2; 76377; 74176; 76705; 96375; 99285; 47562; U0003; J2704; J2250; J3010; J2543 ×2; J1100; J2710; J7799; J7120; J7030; 81003; 81015; J2405

== ENCOUNTER 2020-07-26 10:59 | Emergency (ER) | payer OTHER ==
--- OUTSIDE RECORDS SUMMARY | 2020-07-26 11:03 | XMS REPORT | Continuity of Care Document ---
:1995 Author Organization [facility] t Address [address] [place] [address] Care Team Providers Name Role Phone Carlton Sevilla DO Attending Clinician Payers Payer Name Policy Type Policy Number Effective Date Expiration Date S ource Problems This patient has no known problems. Allergies, Adverse Reactions, Alerts Allergy Allergy Status Severity Reaction(s) Onset Inactive Treating Comm ents Source Name Type Date Date Clinician UNKNOWN DA Active U [facility] 01-20 Rolf 00:00: d 00 [facility] Medications This patient has no known medications. Procedures This patient has no known procedures. Encounters Start End Encounter Admission Attending Care Care Encounter Source Date/Time Date/Time Type Type Clinicians Facility Department ID 2020-05-28 2020-05-28 Emergency ZOË Sevilla [id number] 06:40:00 10:23:00 Kiara Ann [id number] [place] [id number] [place] [id number] [id number] Results Test Description Test Time Test Comments Results Result [facility] e Comments - XR CHEST 1 V 2020-01-21 Name: ARIA ONEAL 13:14:00 [facility] [place] : 1995 Age/S: 24 / M [id number] [place] [place] Unit #: [id number] Loc: [place] [address] Phys: Kimi Flores DO Acct: [id number] Dis Date: Status: REG ER PHONE #: [phone] Exam Date: 01/21/2020 1312 FAX #: Reason: chest pain EXAMS: CPT: [id number] XR CHEST 1 V 27397 Fluoro Time: DAP (Gy m2): Air Kerma [...] PAGE 1 Signed Report Name: ARIA ONEAL [place] : 1995 Age/S: 24 / M [id number] [place] [place] Unit #: [id number] Loc: [place] [address] Phys: Kimi Flores DO Acct: [id number] Dis Date: Status: REG ER PHONE #: [phone] Exam Date: 01/21/2020 1312 FAX #: Reason: chest pain EXAMS: CPT: [id number] XR CHEST 1 V 76906 Fluoro Time: DAP (Gy m2): Air Kerma (mGy): <Continued> Technologist: Isma Jorge RT(R)(CT) Trnscb Date/Time: 01/21/2020 (1314) [id number] Orig Print D/T: S: 01/21/2020 (6893) PAGE 2 Signed Report BASIC METABOLIC PANEL [...] 580 Unit/L 26-192 H CK) CBC W/O [id number] 12:51:00 Test Item Value Reference Range Interpretation [...]
--- NOTE | 2020-07-26 13:55 | ER ---
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 No redness noted during triage. 12:30 Coronavirus screen: At this time, the client does not indicate any symptoms associated aa5 with coronavirus-19. Ebola Screen: No symptoms or risks identified at this time. Initial Sepsis Screen: Does the patient meet any 2 criteria? No. Patient's initial sepsis screen is negative. Does the patient have a suspected source of infection? No. Patient's initial sepsis screen is negative. Risk Assessment: Do you want to hurt yourself or someone else? Patient reports no desire to harm self or others. Onset of symptoms was July 2020. 12:30 Acuity: JONATHAN 5 aa5 12:30 Method Of Arrival: Ambulatory aa5 Historical: - Allergies: 12:36 "1 pink pill"-cant remember the name; aa5 - PMHx: 12:36 Kidney stones; Tachycardia; aa5 - PSHx: 12:36 facial surgery; aa5 - Immunization history:: Adult Immunizations unknown. - Social history:: Smoking status: Patient reports the use of cigarette tobacco products, smokes one pack cigarettes per day. Screenin:00 Abuse screen: Denies threats or abuse. Nutritional screening: No deficits noted. aa5 Tuberculosis screening: No symptoms or risk factors identified. Fall Risk None identified. Assessment: 14:00 General: Appears comfortable, Behavior is calm, cooperative. Pain: Denies pain. Neuro: aa5 Level of Consciousness is awake, alert, obeys commands, Oriented to person, place, time, situation. Cardiovascular: Patient's skin is warm and dry. Respiratory: Airway is patent Respiratory effort is even, unlabored, Respiratory pattern is regular, symmetrical. GI: No signs and/or symptoms were reported involving the gastrointestinal system. : No signs and/or symptoms were reported regarding the genitourinary system. EENT: No signs and/or symptoms were reported regarding the EENT system. Derm: Skin is pink, warm \\T\\ dry. Reports itching, reports redness to aly hands and face. Musculoskeletal: Range of motion: intact in all extremities. 14:50 Reassessment: Patient is alert, oriented x 3, equal unlabored respirations, skin aa5 warm/dry/pink. Vital Signs: 12:30 BP 122 / 65; Pulse 68; Resp 18 S; Temp 98.8(O); Pulse Ox 100% on R/A; Weight 63.5 kg aa5 (R); Height 5 ft. 2 in. (157.48 cm) (R); 12:30 Body Mass Index 25.61 (63.50 kg, 157.48 cm) aa5 ED Course: 11:05 Patient arrived in ED. am2 12:34 Arm band placed on. aa5 12:36 Triage completed. aa5 13:08 Soo Hoff FNP-C is PHCP. kb 13:08 Julio Joy MD is Attending Physician. kb 13:51 Soo Hoff FNP-C is PHCP. kb 13:51 Julio Joy MD is Attending Physician. kb 14:00 Patient has correct armband on for positive identification. Bed in low position. Call aa5 light in reach. Side rails up X 1. 14:45 Yohana Barone, IMER is Primary Nurse. aa5 14:50 No provider procedures requiring assistance completed. Patient did not have IV access aa5 during this emergency room visit. Administered Medications: No medications were administered Outcome: 13:54 Discharge ordered by . kb 14:50 Discharged to home ambulatory. aa5 14:50 Condition: stable 14:50 Discharge instructions given to patient, Instructed on discharge instructions, follow up and referral plans. medication usage, Demonstrated understanding of instructions, follow-up care, medications, Prescriptions given X 1. 14:51 Patient left the ED. aa5 Signatures: Soo Hoff FNP-C FNP-Yohana Fox, RN RN aa5 Simona Mohr am2
--- NOTE | 2020-07-26 13:55 | EDPHYS ---
Physician Documentation [facility] Name: Lars Cruz III Age: 24 yrs Sex: Male : 1995 Arrival Date: 07/26/2020 Time: 11:05 Bed 26 Private MD: ED Physician Julio Joy HPI: 07/26 13:53 This 24 yrs old Male presents to ER via Ambulatory with complaints of Rash - kb both arms/hands. 13:53 The patient's rash thought to be caused by Contact allergy. The rash is located on the kb back, right hand, left hand, right arm, left arm, right leg and left leg. The rash can be described as erythematous. Onset: The symptoms/episode began/occurred last week. Associated signs and symptoms: Pertinent positives: burning sensation, itching. Severity of symptoms: At their worst the symptoms were mild moderate in the emergency department the symptoms are unchanged. The patient has experienced similar episodes in the past, a few times. The patient has not recently seen a physician. 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 Redness, itching and rash to arms, legs and back. States he tried hot and cold showers with no relief. . Historical: - Allergies: 12:36 "1 pink pill"-cant remember the name; aa5 - PMHx: 12:36 Kidney stones; Tachycardia; aa5 - PSHx: 12:36 facial surgery; aa5 - Immunization history:: Adult Immunizations unknown. - Social history:: Smoking status: Patient reports the use of cigarette tobacco products, smokes one pack cigarettes per day. ROS: 13:52 Constitutional: Negative for fever, chills, and weight loss, Cardiovascular: Negative kb for chest pain, palpitations, and edema, Respiratory: Negative for shortness of breath, cough, wheezing, and pleuritic chest pain, Abdomen/GI: Negative for abdominal pain, nausea, vomiting, diarrhea, and constipation, MS/Extremity: Negative for injury and deformity, Neuro: Negative for headache, weakness, numbness, tingling, and seizure. 13:52 Skin: Positive for rash, of the back, right hand, left hand, right arm, left arm, right leg and left leg. Exam: 13:51 Constitutional: This is a well developed, well nourished patient who is awake, alert, kb and in no acute distress. Head/Face: Normocephalic, atraumatic. Abdomen/GI: Soft, non-tender, with normal bowel sounds. No distension. No guarding or rebound. No evidence of tenderness throughout. MS/ Extremity: Pulses equal, no cyanosis. Neurovascular intact. Full, normal range of motion. Neuro: Awake and alert, GCS 15, oriented to person, place, time, and situation. Cranial nerves II-XII grossly intact. Moves all extremities. Sensory grossly intact. Cerebellar exam normal. Normal gait. 13:51 Respiratory: the patient does not display signs of respiratory distress, Respirations: normal. 13:51 Skin: consistent with contact dermatitis, on the back, right hand, left hand, right arm, left arm, right leg and left leg. Vital Signs: 12:30 BP 122 / 65; Pulse 68; Resp 18 S; Temp 98.8(O); Pulse Ox 100% on R/A; Weight 63.5 kg aa5 (R); Height 5 ft. 2 in. (157.48 cm) (R); 12:30 Body Mass Index 25.61 (63.50 kg, 157.48 cm) aa5 MDM: 13:51 Patient medically screened. kb 13:51 Data reviewed: vital signs, nurses notes. Data interpreted: Pulse oximetry: on room air kb is 100 %. Interpretation: normal. Counseling: I had a detailed discussion with the patient and/or guardian regarding: the historical points, exam findings, and any diagnostic results supporting the discharge/admit diagnosis, the need for outpatient follow up, a family practitioner, to return to the emergency department if symptoms worsen or persist or if there are any questions or concerns that arise at home. Administered Medications: No medications were administered Disposition: 18:05 Co-signature as Attending Physician, Julio Joy MD. rn Disposition: 07/26/20 13:54 Discharged to Home. Impression: Irritant contact dermatitis. - Condition is Stable. - Discharge Instructions: Contact Dermatitis, [id number]. - Prescriptions for Prednisone 20 mg Oral Tablet - take 1 tablet by ORAL route once daily for 5 days; 5 tablet. - Medication Reconciliation Form, Thank You Letter, Antibiotic Education, Prescription Opioid Use, Work release form form. - Follow up: Private Physician; When: 2 - 3 days; Reason: Recheck today's complaints, Continuance of care, Re-evaluation by your physician. Follow up: Emergency Department; When: As needed; Reason: Worsening of condition. Signatures: Soo Hoff FNP-C FNP-Julio Flores MD MD rn Calderon, Audri, RN RN aa5 Corrections: (The following items were deleted from the chart) 13:52 13:51 Skin: consistent with contact dermatitis, and is diffusely located, kb kb 14:51 13:54 07/26/2020 13:54 Discharged to Home. Impression: Irritant contact dermatitis. aa5 Condition is Stable. Forms are Medication Reconciliation Form, Thank You Letter, Antibiotic Education, Prescription Opioid Use. Follow up: Private Physician; When: 2 - 3 days; Reason: Recheck today's complaints, Continuance of care, Re-evaluation by your physician. Follow up: Emergency Department; When: As needed; Reason: Worsening of condition. kb
[2020-07-26 22:13] VITALS: BP 122/65; TEMP 98.8; O2SAT 100
== END 2020-07-26 14:51 | disposition home or self-care (01) ==
LOC: ER 10:59
DX: L24.9 Irritant contact dermatitis, unspecified cause (principal); F17.210 Nicotine dependence, cigarettes, uncomplicated
CPT/HCPCS: 99282

== ENCOUNTER 2022-04-18 03:58 | Emergency (ER) | payer OTHER ==
--- OUTSIDE RECORDS SUMMARY | 2022-04-18 04:02 | XMS REPORT | Continuity of Care Document ---
:1995 Author Organization [facility] t Address [address] [place] [address] Care Team Providers Name Role Phone Kiara Reyes DO Attending Clinician KIARA REYES Attending Clinician Unavailable Payers Payer Name Policy Type Policy Number Effective Date Expiration Date S ource Problems Condition Condition Condition Status Onset Resolution Last Treating Co mments Source Name Details Category Date Date Treatment Clinician Date No known No known Disease Unive rs active active ity of problems problems [facility] Allergies, Adverse Reactions, Alerts Allergy Allergy Status Severity Reaction(s) Onset Inactive Treating Comm ents Source Name Type Date Date Clinician UNKNOWN DA Active U UNKNOWN [facility] 01[facility]20 [place] [facility] NO KNOWN Drug Active Univers ALLERGIE Class ity of [facility] Social History Social Habit Start Date Stop Date Quantity Comments Source Sex Assigned [facility] Exposure to Unable to assess [facility] SARS-CoV-2 (event) Medica l Branch Smoking Status Start Date Stop Date Source Unknown if ever smoked [facility] Medications Ordered Filled Start Stop Current Ordering Indication Dosage Frequency Signature Comments Components Source Medication Medication Date Date Medication? Clinician (SIG) Name Name No known No Univers medications [facility] Vital Signs Vital Name Observation Time Observation Value Comments Source Systolic blood 2020-05-28 13:00:00 117 mm[Hg] Univer sity of pressure [facility] Diastolic blood 2020-05-28 13:00:00 85 mm[Hg] Unive rsity of pressure [facility] Heart rate 2020-05-28 13:00:00 110 /min Universi ty of [facility] Respiratory rate 2020-05-28 13:00:00 20 /min Univ ersity of [facility] Oxygen saturation in 2020-05-28 13:00:00 98 /min University of Arterial blood by [facility] Pulse oximetry Branch Body temperature 2020-05-28 12:47:00 36.67 Jocy Univ ersity of [facility] Body height 2020-05-28 12:47:00 170.2 cm Universi ty of [facility] Body weight 2020-05-28 12:47:00 63.504 kg Universi ty of [facility] BMI 2020-05-28 12:47:00 21.93 kg/m2 Universi ty of [facility] Systolic blood 2020-05-28 13:00:00 117 mm[Hg] Univer sity of pressure [facility] Diastolic blood 2020-05-28 13:00:00 85 mm[Hg] Unive rsity of pressure [facility] Heart rate 2020-05-28 13:00:00 110 /min Universi ty of [facility] Respiratory rate 2020-05-28 13:00:00 20 /min Univ ersity of [facility] Oxygen saturation in 2020-05-28 13:00:00 98 /min University of Arterial blood by [facility] Pulse oximetry Branch Body temperature 2020-05-28 12:47:00 36.67 Jocy Univ ersity of [facility] Body height 2020-05-28 12:47:00 170.2 cm [facility] Body weight 2020-05-28 12:47:00 63.504 kg Universi ty of [facility] BMI 2020-05-28 12:47:00 21.93 kg/m2 Universi ty [facility] [place] [place] Procedures Procedure Date / Time Performed Performing Clinician Sourc e TROPONIN I 2020-05-28 12:50:00 Kiara Reyes [facility] y [facility] [place] [place] HEPATIC FUNCTION 2020-05-28 12:50:00 Kiara Reyes [facility] PANEL ([id number]) Medical Branch (ALB,T.PRO,BILI T,BU/BC,ALT,AST,ALK PHOS) BASIC METABOLIC PANEL 2020-05-28 12:50:00 Kiara Reyes [facility] (NA, K, CL, CO2, Medical Branch GLUCOSE, BUN, CREATININE, CA) CBC WITH DIFF 2020-05-28 12:50:00 Kiara Reyes [facility] Encounters Start End Encounter Admission Attending Care Care Encounter Source Date/Time Date/Time Type Type Clinicians Facility Department ID 2020-01-21 Inpatient HCAPM JAMARCUS [id number] [facility] 12:18:00 20 [facility] 2020-05-28 2020-05-28 [facility] [id number] 06:40:00 10:23:00 Kiara Ann [id number] [place] [id number] [place] [id number] [facility] 2020-05-28 2020-05-28 [facility] [id number] [facility] 06:40:00 10:23:00 Kiara Ann [id number] ity [facility] 4.2.7.2.686 [facility] [id number] [address] 2020-05-28 2020-05-28 [facility] ERT [id number] Univers 06:40:00 06:40:00 KIARA [facility] Results Test Description Test Time Test Comments Results Result Comments Source Troponin I 2020-05-28 13:44:00 Test Item Value Reference Range Interpretation Comme nts TROPONIN I (test code = <0.012 See_Comment [Au tomated message] The 3004427447) system which ge nerated this result tra nsmitted reference range : <=0.034 ng/mL. The refe rence range was not u sed to interpret this result as normal/abnormal . MARE (test code = MARE) Equal or Less than 0.034 ng/ml---Normal ?Note: Cardiac troponin begins to rise 3-4 hours after the onset of ischemia. Repeat in 4-6 hours if the sample was drawn within 3-4 hours of the onset of the symptom and found normal. Between 0.035 and 0.120 ng/mL--- Borderline. Questionable myocardial injury or necrosis ? ?Note: Serial measurement may be necessary to confirm or exclude the diagnosis of myocardial injury or necrosis; Clinical correlation (symptoms, EKGs, imaging studies, and others) required; Repeat in 4-6 hours if clinically indicated. ? Equal or Higher than 0.121 ng/mL---Abnormal. Myocardial Injury or Necrosis Likely ? Biotin has been reported to cause a negative bias, interpret results relative to patient's use of biotin. ? Lab Interpretation (test Normal code = 28827-2) [facility] (ALB, T.PRO, BILI T, BU/BC, ALT, AST, ALK PHOS)2020-05-28 13:32:00 Test Item Value Reference Range Interpretation Comments TOTAL BILI (test code = 5988949607) 1.5 mg/dL 0.1-1.1 H BILI UNCON (test code = 7926986786) 1.2 mg/dL 0.1-1.1 H BILI CONJ (test code = 8229613891) 0.0 mg/dL 0-0.3 T PROTEIN (test code = 1149923232) 9.0 g/dL 6.3-8.2 H ALBUMIN (test code = 5020260512) 5.5 g/dL 3.5-5 H ALK PHOS (test code = 6156237578) 88 U/L 34-122 ALTv (test code = 1742-6) 35 U/L 5-50 AST(SGOT) (test code = 0701366848) 43 U/L 13-40 H Lab Interpretation (test code = Abnormal 90312-2) [facility] (NA, K, CL, CO2, GLUCOSE, BUN, CREATININE, CA)2020-05-28 13:32:00 Test Item Value Reference Range Interpretation Comments NA (test code = 141 mmol/L 135-145 0635891969) K (test code = 3.5 mmol/L 3.5-5 1407059841) CL (test code = 97 mmol/L 98-108 L 4529081894) CO2 TOTAL (test code = 25 mmol/L 23-31 1991909342) AGAP (test code = 2-16 H 9359595131) BUN (test code = 20 mg/dL 7-23 0577632920) GLUCOSE (test code = 82 mg/dL 70-110 6792027601) CREATININE (test code = 0.79 mg/dL 0.6-1.25 7269976657) CALCIUM (test code = 10.2 mg/dL 8.6-10.6 0893845872) eGFR Calculation mL/min/1.73m2 (Non-) (test code = 2201116090) eGFR Calculation mL/min/1.73m2 () (test code = 8325498597) MARE (test code = MARE) Association of Glomerular Filtration Rate (GFR) and Staging of Kidney Disease* + --+ --+ ------+| GFR (mL/min/1.73 m2) ?| With Kidney Damage ?| ?Without Kidney Damage+ --------+ --------+ +| ?>90 ?| ?Stage one ?| ? Normal ?+ ---+ ---+ -------+| ?60-89 ?| ?Stage two ?| ? Decreased GFR ? + --+ --+ ------+| ?30-59 ?| ?Stage three ?| ? Stage three ? + --+ --+ ------+| ?15-29 ?| ?Stage four ? | ? Stage four ?+ ---+ ---+ -------+| ?<15 (or dialysis) ? ?| ?Stage five ? | ? Stage five ?+ ---+ ---+ -------+ *Each stage assumes the associated GFR level has been in effect for at least three months. ?Stages 1 to 5, with or without kidney disease, indicate chronic kidney disease. Notes: Determination of stages one and two (with eGFR >59mL/min/1.73 m2) requires estimation of kidney damage for at least three months as defined by structural or functional abnormalities of the kidney, manifested by either:Pathological abnormalities or Markers of kidney damage (including abnormalities in the composition of the blood or urine or abnormalities in imaging tests). Lab Interpretation Abnormal (test code = 88218-2) [facility] with [id number] 13:19:00 Test Item Value Reference Range Interpretation Comments WBC (test code = See_Comment H [Automated 6690-2) message] The sy stem which generated this result transmitted reference range : 4.20 - 10.70 10*3/?L. The reference range was not used to interpret this result as normal/abnormal . RBC (test code = See_Comment H [Automated 789-8) message] The sy stem which generated this result transmitted reference range : 4.26 - 5.52 10*6/?L. The reference range was not used to interpret this result as normal/abnormal . HGB (test code = 16.7 g/dL 12.2-16.4 H 718-7) HCT (test code = 49.6 % 38.4-49.3 H 4544-3) MCV (test code = 89.5 fL 81.7-95.6 787-2) MCH (test code = 30.1 pg 26.1-32.7 785-6) MCHC (test code = 33.7 g/dL 31.2-35 786-4) RDW-SD (test code = 38.3 fL 38.5-51.6 L 67554-3) RDW-CV (test code = 11.7 % 12.1-15.4 L 788-0) PLT (test code = See_Comment [Automated 777-3) message] The sy stem which generated this result transmitted reference range : 150 - 328 10*3/ ?L. The reference r eagle was not used to interpret this result as normal/abnormal . MPV (test code = 9.6 fL 9.8-13 L 79731-7) NRBC/100 WBC (test See_Comment [Automat ed code = 4770115710) message] The system which generated this result transmitted reference range : 0.0 - 10.0 /100 WBCs. The refer ence range was not u sed to interpret th is result as normal/abnormal . NRBC x10^3 (test code <0.01 See_Comment [Auto mated = 9078229743) message] The s ystem which generated this result transmitted reference range : 10*3/?L. The reference range was not used to interpret this result as normal/abnormal . GRAN MAT (NEUT) % 62.1 % (test code = 770-8) IMM GRAN % (test code 0.60 % = 3289449396) LYMPH % (test code = 25.9 % 736-9) MONO % (test code = 9.2 % 5905-5) EOS % (test code = 1.7 % 713-8) BASO % (test code = 0.5 % 706-2) GRAN MAT x10^3(ANC) 9.09 10*3/uL 1.99-6.95 H (test code = 7037577813) IMM GRAN x10^3 (test 0.09 10*3/uL 0-0.06 H code = 6848994758) LYMPH x10^3 (test code 3.79 10*3/uL 1.09-3.23 H = 731-0) MONO x10^3 (test code 1.35 10*3/uL 0.36-1.02 H = 742-7) EOS x10^3 (test code = 0.25 10*3/uL 0.06-0.53 711-2) BASO x10^3 (test code 0.07 10*3/uL 0.01-0.09 = 704-7) Lab Interpretation Abnormal (test code = 25039-2) [facility] XR CHEST 1 [id number] 13:14:00 Name: ARIA ONEAL [facility] : 1995 Age/S: 24 / M [id number] Unit #: [id number] Loc: [place] [address] Phys: Kimi Flores DO Acct: [id number] Dis Date: Status: REG ER PHONE #:[phone] Exam Date: 01/21/2020 1312 FAX #: Reason: chest pain EXAMS: CPT: [id number] XR CHEST 1 V 23236 Fluoro Time: DAP (Gy m2): Air Kerma (mGy): INDICATION: chest pain LOCATION: T18 COMPARISON STUDY: None available FINDINGS: Single view of the chest. The lungs are clear. There is no pneumothoraxor pleural fluid. The heart size and pulmonary vasculature are within normal limits. No acute osseous findings. IMPRESSION: No evidence of acute cardiopulmonary process. at 1314 Reported and signed by: Murail Azar M.D. CC: Kimi Flores DO PAGE 1 Signed Report Name: ARIA OENAL : 1995 Age/S: 24 / [id number] Unit #: [id number] Loc: [place] [address] Phys: Kimi Flores DO Acct: [id number] Dis Date: Status: REG ER PHONE #: [phone] Exam Date: 01/21/2020 1312 FAX #: Reason: chest p ain EXAMS: CPT: [id number] XR CHEST 1 V 28486 Fluoro Time: DAP (Gy m2): Air Kerma (mGy): (Continued)Technologist: Isma Jorge RT(R)(CT) Trnscb Date/Time: 01/21/2020 (131) [email or web address] Orig Print D/T: S: 01/21/2020 (2267) PAGE 2 Signed ReportBASIC METABOLIC [id number] 13:04:00 Test Item Value Reference Range Interpretation Comments SODIUM (test code = NA) 141 mmol/L 134-147 N POTASSIUM (test code = 3.5 mmol/L 3.4-5.0 N K) CHLORIDE (test code = 106 mmol/L 100-108 N CL) CARBON DIOXIDE (test 25 mmol/L 21-32 N code = CO2) ANION GAP (test code = 10.0 GAP calc 4.0-15.0 N GAP) GLUCOSE (test code = 90 MG/DL 70-110 N GLU) BLOOD UREA NITROGEN 24 MG/DL 7-18 H (test code = BUN) GLOMERULAR FILTRATION >=60 max estimate >60 RATE (test code = GFR) estGFR CREATININE (test code = 0.8 MG/DL 0.8-1.3 N CREAT) CALCIUM (test code = CA) 8.5 MG/DL 8.5-10.1 N CREATINE KINASE (CK)2020-01-21 13:04:00 Test Item Value Reference Range Interpretation Comments CREATINE KINASE (CK) (test code = 580 Unit/L 26-192 H CK) CBC W/O [id number] 12:51:00 Test Item Value Reference Range Interpretation [...] (test code = 9.30 fL 7.0-9.6 N MPV)"
[2022-04-18] MEDS ORDERED: NA CHLORIDE 0.9% 1,000 ML ONE (04:24)
[2022-04-18] MEDS ORDERED: KETOROLAC 30 MG/ML INJ ONE (04:24)
[2022-04-18 04:50] LABS: Absolute Lymphocytes (CBC) 2.3 K/uL (0.7-4.9); Hematocrit 44.4 % (39.6-49.0); Lymphocytes % 23.3 % (15.3-44.8); MCV 91.7 fL (80-100); MPV 7.8 fL (7.6-11.3); RBC Red Blood Cell Count 4.83 M/uL (4.33-5.43)
[2022-04-18 05:02] LABS: Albumin 4.1 g/dL (3.4-5.0); Bilirubin Direct 0.1 mg/dL (0-0.2); Bilirubin Total 0.4 mg/dL (0.2-1.0); Potassium 4.1 mmol/L (3.5-5.1); Protein, Total 7.5 g/dL (6.4-8.2)
[2022-04-18 05:11] LABS: Urine Blood 1+ (Negative); Urine Glucose Negative (Negative); Urine Protein Negative (Negative); Urine Specific Gravity 1.025 (1.005-1.030)
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
[2022-04-18] MEDS ORDERED: TETANUS & DIPHTHERIA TOX,ADULT 0.5 ML VIAL ONE (06:51)
[2022-04-18 07:49] VITALS: TEMP 98.7
[2022-04-18 07:51] VITALS: BP 117/76; O2SAT 98
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
== END 2022-04-18 07:09 | disposition home or self-care (01) ==
LOC: ER 03:58
DX: S80.11XA Contusion of right lower leg, initial encounter (principal); V48.5XXA Car driver injured in noncollision transport accident in traffic accident, initial encounter; Z23 Encounter for immunization
CPT/HCPCS: 96361; 85025; 80048; 36415; 80320; 86900; 86850; 86901; 80076; 81003; 70450; 72125; 71260; 74177; 73552; 90471; 90714; 96374; 99284; Q9967; J7030